=== PATIENT | female | born 1985 | race Hispanic/Latino ===

== ENCOUNTER → 2017-11-25 | Outpatient (CLI) | payer OTHER ==
[~2017-11-25] MED LIST: FERR325C PO; HYDR-926 PO; PNV1TABL34 PO
[2017-11-25 11:12] LABS: BASOPHIL % 0.2 % (0.0-0.2); EOSINOPHIL # 0.2 10^3/uL (0.0-0.2); EOSINOPHIL % 3.2 % (0.0-5.0); HEMOGLOBIN 12.8 g/dL (12.0-15.0); LYMPHOCYTES # 1.8 10^3/uL (1.0-4.8); LYMPHOCYTES % 29.6 % (24.0-44.0); MEAN CELL HGB 28.8 pg (26-34); MEAN CELL HGB CONCENTRATION 33.6 g/dL (33-37); MEAN CORP VOLUME 85.6 fL (78-100); MEAN PLATELET VOLUME 10.8 fL (7.8-11.0); MONOCYTES # 0.4 10^3/uL (0.3-0.8); MONOCYTES % 6.9 % (5.0-12.0); NEUTROPHIL # 3.7 10^3/uL (1.8-7.7); NEUTROPHILS % 60.1 % (41.0-85.0); RED CELL DISTRIBUTION WIDTH 13.3 % (11.5-14.5); WHITE BLOOD CELL 6.2 10^3/uL (4.5-11.0)
[2017-11-25 11:54] LABS: CALCIUM 9.1 mg/dL (8.4-10.5); CARBON DIOXIDE 24.8 mmol/L (20.0-32)
== END | disposition home or self-care (01) ==
LOC: LAB 10:51
PROVIDERS: ATTEND Nurse Practitioner Women's Health
DX: E55.9 Vitamin D deficiency, unspecified (principal); Z68.35 Body mass index [BMI] 35.0-35.9, adult
CPT/HCPCS: 36415; 80053; 80061; 82306; 83036; 84439; 84443; 85025

== ENCOUNTER 2018-02-20 11:38 | Emergency (ER) | payer OTHER ==
[~2018-02-20] VITALS: Ht 157.5 cm; Wt 97.1 kg
[~2018-02-20 11:38] MED LIST changes: +HYDR-3468 PO; -HYDR-926 PO
--- NOTE | 2018-02-20 11:50 | ER.PDOC ---
General Chief Complaint: Requesting Medical Care Stated Complaint: HERNIA Time seen by MD: 11:49 Source: patient Exam Limitations: no limitations History of Present Illness Initial Comments Pt with h/o umbilical hernia, which has been hurting for the last two days Timing/Duration: 24 hours Severity/Quality: severe, sharpness Radiation: no radiation, periumbilical Associated Symptoms: nausea/vomiting Exacerbated by: movements Relieved By: supine Allergies: Coded Allergies: No Known Allergies (Unverified , 10/28/13) Home Meds Active Scripts Hydrocodone Bit/Acetaminophen (NORCO 5-325 TABLET) 5-325 Ta1 Ea Tablet, 1 EACH PO Q4HR PRN for PAIN MODERATE, #30 TABLET 0 Refills Prov:MEL VARGAS MD 03/26/16 Reported Medications Ferrous Sulfate (IRON) 325 Mg Capsule.er, 325 MG PO BID 02/22/16 Pnv With Ca,No.72/Iron/Fa ( PLUS IRON TABLET) 1 Each Tablet, 1 TAB PO DAILY, #30 TAB 11 Refills 02/22/16 Constitutional: no symptoms reported EENTM: no symptoms reported Respiratory: no symptoms reported Cardiovascular: no symptoms reported Gastrointestinal: see HPI Genitourinary: no symptoms reported Musculoskeletal: no symptoms reported Skin: no symptoms reported Psychiatric/Neurological: no symptoms reported Endocrine: no symptoms reported Hematologic/Lymphatic: no symptoms reported Physical Exam General Appearance: No Apparent Distress, WD/WN HEENT: PERRL/EOMI, Normal ENT Inspection, TMs Normal, Pharynx Normal Neck: Non-Tender, Full Range of Motion, Supple, Normal Inspection Respiratory: chest non-tender, lungs clear, normal breath sounds, no respiratory distress, no accessory muscle use Cardiovascular: Normal Peripheral Pulses, Regular Rate, Rhythm, No Edema, No Gallop, No JVD, No Murmur Gastrointestinal: Normal Bowel Sounds, Tenderness (umbilical area with 5 cm sized umbilical hernia which does not look red or warm) Back: Normal Inspection, No CVA Tenderness, No Vertebral Tenderness Extremities: Normal Range of Motion, Non-Tender, Normal Inspection, No Pedal Edema, No Calf Tenderness, Normal Capillary Refill, Pelvis Stable Neurologic/Psychiatric: authors motivational II-XII NML as Tested, No Motor/Sensory Deficits, Alert, Normal Mood/Affect, Oriented x 3 Skin: Normal Color, Warm/Dry Lymphatic: No Adenopathy Departure Time of Disposition: 15:26 Disposition: 01 HOME, SELF-CARE Impression: Primary Impression: Umbilical hernia Additional Impression: UTI (urinary tract infection) Condition: Stable Referrals: NAIMA LIN MD (PCP) PRIMARY CARE PROVIDER Duration or Time Spent with Pa: 15 Problem Qualifiers TAISHA SIDDIQUI MD Feb 20, 2018 11:50
[2018-02-20] MEDS ORDERED: TORADOL IV STA (11:53)
[2018-02-20 11:54] VITALS: BP 123/67
[2018-02-20] MEDS ORDERED: NS 1000ML 1,000 ML IV ONE (12:00)
[2018-02-20] MEDS ORDERED: TORADOL ONE (12:03)
[2018-02-20] MEDS ORDERED: NS 1000ML 1,000 ML ONE (12:03)
[2018-02-20 12:08] LABS: BASOPHIL % 0.1 % (0.0-0.2); EOSINOPHIL # 0.2 10^3/uL (0.0-0.2); EOSINOPHIL % 1.9 % (0.0-5.0); HEMOGLOBIN 13.2 g/dL (12.0-15.0); LYMPHOCYTES # 2.3 10^3/uL (1.0-4.8); LYMPHOCYTES % 25.3 % (24.0-44.0); MEAN CELL HGB 28.1 pg (26-34); MEAN CELL HGB CONCENTRATION 32.5 g/dL (33-37); MEAN CORP VOLUME 86.4 fL (78-100); MEAN PLATELET VOLUME 10.6 fL (7.8-11.0); MONOCYTES # 0.6 10^3/uL (0.3-0.8); MONOCYTES % 6.8 % (5.0-12.0); NEUTROPHIL # 5.8 10^3/uL (1.8-7.7); NEUTROPHILS % 65.6 % (41.0-85.0); RED CELL DISTRIBUTION WIDTH 13.6 % (11.5-14.5); WHITE BLOOD CELL 8.9 10^3/uL (4.5-11.0)
[2018-02-20 12:24] LABS: CALCIUM 9.5 mg/dL (8.4-10.5); CARBON DIOXIDE 27.8 mmol/L (20.0-32)
[2018-02-20 15:00] LABS: BILIRUBIN,URINE NEGATIVE (NEGATIVE)
--- NOTE | 2018-02-20 15:09 | DIREP ---
PROCEDURE:CT ABDOMEN/PELVIS W/ CONTRAST COMPARISON:None. INDICATIONS:UMBILICAL Hernia, abdominal pain TECHNIQUE:Axial images were created through the abdomen and pelvis with non-ionic intravenous contrast material. Oral contrast was administered. Sagittal and coronal reconstructions were performed from source images. FINDINGS: LUNG BASES:No suspicious airspace consolidation or pleural effusion. LIVER:No suspicious focal hepatic lesion. BILIARY:The gallbladder is contracted. There is increased density material within the gallbladder which may reflect hyperdense sludge, tiny calculi or vicarious excretion of intravenous contrast. There are larger low-attenuation filling defects within the gallbladder, most consistent with cholelithiasis. This includes a presumed calculus in the region of the gallbladder neck. No intrahepatic or extrahepatic biliary ductal dilatation. PANCREAS:No suspicious pancreatic abnormality. SPLEEN:The spleen is not significantly enlarged. No focal splenic lesion identified. ADRENALS:The adrenal glands are unremarkable. URINARY TRACT:Tiny left renal cyst. No hydronephrosis or suspicious renal lesion. AORTA/VASCULAR:No aneurysmal dilatation. RETROPERITONEUM:No suspicious retroperitoneal lymphadenopathy. BOWEL/MESENTERY:No evidence for small bowel obstruction. No gross colonic abnormality. Normal appendix. No free air. ABDOMINAL WALL:Sizable fat containing umbilical hernia. The herniated fat measures approximately 6.9 x 6.1 x 6.7 cm (cc, AP, TV). This extends through an approximate 1.8 x 1.6 cm defect within the midline ventral abdominal wall at the level of the umbilicus. There is subtle edema of the herniated fat which may reflect secondary inflammation. PELVIC ORGANS:Urinary bladder is nondistended. Uterus is not enlarged for the patient's age. Adnexal regions appear within normal limits. No significant free fluid within the pelvis. BONES:No acute abnormality. CONCLUSION: 1. Sizable fat containing umbilical hernia as discussed above. There is subtle edema of the herniated fat which may reflect secondary inflammation. 2. Contracted gallbladder with hyperdense contents and apparent cholelithiasis, including a presumed calculus in the region of the gallbladder neck. No overt gallbladder wall thickening or pericholecystic inflammation to suggest acute cholecystitis. No intrahepatic or extrahepatic biliary ductal dilatation. 3. Additional findings as discussed above. Dictated by: Jorge A Pierce M.D. On 02/20/2018 at 02:46 PM
[2018-02-20 15:18] LABS: APPEARANCE,URINE CLOUDY (CLEAR); UA COLOR YELLOW (YELLOW)
[2018-02-20 15:44] VITALS: BP 123/67
== END 2018-02-20 15:45 | disposition home or self-care (01) ==
LOC: ER 11:38
DX: N39.0 Urinary tract infection, site not specified (principal); R79.1 Abnormal coagulation profile; K42.9 Umbilical hernia without obstruction or gangrene; Z79.899 Other long term (current) drug therapy
CPT/HCPCS: 36415; 74177; 80053; 81000; 81025; 85025; 85610; 85730; 87086; 96361; 96374; 99284; J1885; J7030; Q9963; Q9965

== ENCOUNTER → 2019-03-14 | Outpatient (CLI) | payer OTHER ==
[2019-03-14 12:37] LABS: BASOPHIL % 0.4 % (0.0-0.2); EOSINOPHIL # 0.2 10^3/uL (0.0-0.2); EOSINOPHIL % 2.1 % (0.0-5.0); LYMPHOCYTES # 2.5 10^3/uL (1.0-4.8); LYMPHOCYTES % 30.5 % (24.0-44.0); MEAN CORP HGB 29.2 pg (26-34); MONOCYTES # 0.6 10^3/uL (0.3-0.8); MONOCYTES % 6.9 % (5.0-12.0); NEUTROPHIL # 4.9 10^3/uL (1.8-7.7); RED CELL DISTRIBUTION WIDTH 13.7 % (11.5-14.5)
[2019-03-14 13:12] LABS: CALCIUM 8.8 mg/dL (8.4-10.5); CARBON DIOXIDE 25.8 mmol/L (20.0-32)
== END | disposition home or self-care (01) ==
LOC: LAB 12:26
PROVIDERS: ATTEND Nurse Practitioner Women's Health
DX: E55.9 Vitamin D deficiency, unspecified (principal); Z68.33 Body mass index [BMI] 33.0-33.9, adult
CPT/HCPCS: 36415; 80053; 80061; 82306; 83036; 84439; 84443; 85025

== ENCOUNTER 2019-05-12 14:23 | Inpatient (IN) | payer OTHER ==
[~2019-05-12] VITALS: Ht 162.6 cm; Wt 96.0 kg
[2019-05-12] VITALS (14 sets, daily range): BP systolic 86–115; BP diastolic 47–67
--- NOTE | 2019-05-12 15:02 | ER.PDOC ---
General Chief Complaint: Abdomen Pain Stated Complaint: STOMACH HERNIA,VOMITTING Time seen by MD: 15:02 Source: patient Exam Limitations: no limitations History of Present Illness Initial Comments Patient had sudden onset of abdominal pain just above the umbilicus at noon. She has a known hernia here and has had it reduced before, but it always pops back out. Today the pain came on suddenly and she has had n/v. Timing/Duration: 1-3 hours Severity/Quality: severe, sharpness, stabbing Radiation: epigastric, periumbilical Associated Symptoms: nausea/vomiting, swelling/mass in abdomen Exacerbated by: movements Relieved By: remaining still Allergies: Coded Allergies: No Known Allergies (Unverified , 10/28/13) Home Meds Active Scripts Hydrocodone Bit/Acetaminophen (NORCO 5-325 TABLET) 5-325 Ta1 Ea Tablet, 1 EACH PO Q4HR PRN for PAIN MODERATE, #30 TABLET 0 Refills Prov:MEL VARGAS MD 03/26/16 Reported Medications Ferrous Sulfate (IRON) 325 Mg Capsule.er, 325 MG PO BID 02/22/16 Pnv With Ca,No.72/Iron/Fa ( PLUS IRON TABLET) 1 Each Tablet, 1 TAB PO DAILY, #30 TAB 11 Refills 02/22/16 Vital Signs First Vital Signs Date Time Temp Pulse Resp B/P (MAP) Pulse Ox O2 Delivery O2 Flow Rate FiO2 05/12/19 14:37 98.5 62 16 100/63 (75) 100 Last Vital Signs Date Time Temp Pulse Resp B/P (MAP) Pulse Ox O2 Delivery O2 Flow Rate FiO2 05/12/19 16:09 98.5 56 16 86/53 (64) 100 Past Medical History Medical History: other (known abdominal hernia in the region of pain that she states will only pop back out if I put it back in) Surgical History: no surgical history Social History Alcohol Use: none Drug Use: none Constitutional: no symptoms reported EENTM: no symptoms reported Respiratory: no symptoms reported Cardiovascular: no symptoms reported Gastrointestinal: abdominal pain (just above umbilicus in region of known hernia), nausea, vomiting Musculoskeletal: no symptoms reported Skin: no symptoms reported Physical Exam General Appearance: Mild Distress (patient appears acutely uncomfortable) Respiratory: lungs clear, normal breath sounds, no respiratory distress, no accessory muscle use Cardiovascular: Regular Rate, Rhythm Gastrointestinal: Hypoactive bowel sounds, Other (rigid 6 cm mass above umbilicus, very TTP, c/w incarcerated hernia) Extremities: No Pedal Edema, No Calf Tenderness Neurologic/Psychiatric: Alert, Oriented x 3 Skin: Normal Color, Warm/Dry Lymphatic: No Adenopathy Results/Orders Results/Orders Orders - SPARKLE CORTÉS DO Cbc With Auto Diff (05/12/19 15:09) Comprehensive Metabolic Panel (05/12/19 15:09) Amylase (05/12/19 15:09) Lipase (05/12/19 15:09) PT (05/12/19 15:09) Ct Abd/Pel With Iv Contrast (05/12/19 15:09) Partial Thromboplastin Time. (05/12/19 15:09) Hcg Qualitative Serum (05/12/19 15:09) Urinalysis (05/12/19 15:09) Saline Lock (05/12/19 15:09) Ngt To Lis (05/12/19 15:09) 0.9 % Sodium Chloride (Ns 1000ml) (05/12/19 15:30) 0.9 % Sodium Chloride (Ns 1000ml) (05/12/19 15:16) Fentanyl Citrate/Pf (Sublimaze) (05/12/19 15:33) Ondansetron Hcl/Pf (Zofran) (05/12/19 15:33) Xr Chest 1v (05/12/19 15:41) 0.9 % Sodium Chloride (Ns 1000ml) (05/12/19 16:26) 0.9 % Sodium Chloride (Ns 1000ml) (05/12/19 16:30) 0.9 % Sodium Chloride (Ns 1000ml) (05/12/19 16:42) Lactic Acid(Ml) (05/12/19 16:42) Vital Signs Date Time Temp Pulse Resp B/P (MAP) Pulse Ox O2 Delivery O2 Flow Rate FiO2 05/12/19 16:09 98.5 56 16 86/53 (64) 100 05/12/19 14:52 98.5 59 16 05/12/19 14:37 98.5 58 16 100 05/12/19 14:37 98.5 62 16 100/63 (75) 100 Administered Medications Medications (Trade) Dose Ordered Sig/Michael Route PRN Reason Start Time Stop Time Status Last Admin Dose Admin Fentanyl Citrate (Sublimaze) 50 mcg STAT STAT IV 05/12/19 15:33 05/12/19 15:34 UNV 05/12/19 15:47 50 MCG Ondansetron HCl (Zofran) 4 mg STAT STAT IV 05/12/19 15:33 05/12/19 15:34 UNV 05/12/19 15:47 4 MG Sodium Chloride 1,000 ml @ 0 mls/hr Q0M STAT IV 05/12/19 16:30 05/12/19 16:31 UNV 05/12/19 16:32 1,200 MLS/HR Sodium Chloride 1,000 ml @ 1,200 mls/hr Q50M ONCE IV 05/12/19 15:30 05/12/19 16:19 DC 05/12/19 15:17 1,200 MLS/HR Laboratory Tests Test 05/12/19 15:25 White Blood Count 9.1 10^3/uL (4.5-11.0) Red Blood Count 4.29 10^6/uL (4.00-5.20) Hemoglobin 12.5 g/dL (12.0-15.0) Hematocrit 37.4 % (36.0-46.0) Mean Corpuscular Volume 87.2 fL (78-100) Mean Corpuscular Hemoglobin 29.1 pg (26-34) Mean Corpuscular Hemoglobin Concent 33.4 g/dL (33-36.5) Red Cell Distribution Width 12.9 % (11.5-14.5) Platelet Count 278 10^3/uL (150-400) Mean Platelet Volume 10.7 fL (7.8-11.0) Neutrophils (%) (Auto) 87.1 % (41.0-85.0) H Lymphocytes (%) (Auto) 9.4 % (24.0-44.0) L Monocytes (%) (Auto) 2.9 % (5.0-12.0) L Neutrophils # (Auto) 7.9 10^3/uL (1.8-7.7) H Lymphocytes # (Auto) 0.86 10^3/uL1 (1.0-4.8) L Monocytes # (Auto) 0.3 10^3/uL (0.3-0.8) Absolute Immature Granulocyte (auto 0.02 10^3 u/L (0-2) Absolute Eosinophils (auto) 0.0 10^3/uL (0.0-0.2) Immature Granulocytes % 0.20 % (0.00-0.50) Eosinophils % 0.2 % (0.0-5.0) Basophils % 0.2 % (0.0-0.2) Basophils # 0.0 10^3/uL (0.0-0.1) Prothrombin Time 11.4 SEC (9.3-11.3) H Prothrombin Time INR (Non-Therap) 1.1 Activated Partial Thromboplast Time 23.2 SEC (24.67-30.72) Sodium Level 140 mmol/L (132-145) Potassium Level 3.9 mmol/L (3.6-5.2) Chloride Level 105.0 mmol/L (96-109) Carbon Dioxide Level 27.4 mmol/L (20.0-32) Anion Gap 11.5 Blood Urea Nitrogen 10 mg/dL (7-18) Creatinine 0.70 mg/dL (0.59-1.40) Estimated GFR () 118.1 (>/=60) Est GFR (CKD-EPI)(Non-Afr Lebanese) 97.6 (>/=60) BUN/Creatinine Ratio 14.0 Glucose Level 121 mg/dL (70-110) H Calcium Level 8.8 mg/dL (8.4-10.5) Total Bilirubin 0.3 mg/dL (0.2-1.0) Aspartate Amino Transferase (AST) 31 U/L (0-35) Alanine Aminotransferase (ALT) 67 U/L (12-78) Alkaline Phosphatase 75 U/L (50-136) Total Protein 7.7 g/dL (6.4-8.2) Albumin 3.9 g/dL (3.4-5.0) Globulin 3.8 Amylase Level 54 U/L (25-115) Lipase 174 U/L (114-286) Serum HCG, Qualitative NEGATIVE (NEGATIVE) Progress Progress Dr. Conrad suggested NGT to see if it would decompress and potentially relieve incarceration. Patient's blood pressure at onset of visit will not support narcotic administration. We are bolusing NS prior to medication order/administration. @1533 BP 124/65. Fentanyl ordered for pain with zofran to control nausea. We were unable to give more pain medication d/t low blood pressure (86 systolic after fentanyl). A second bolus was ordered. Patient was placed in trendelenberg and pressure applied to hernia. She tolerated this poorly. I was unable to appreciate movement of hernia on exam. BP up to 114 systolic after attempted reduction. @[address] results [address] DR. Conrad. He would like a 3rd liter NS bolused. States he will come up and view CT then evaluate patient. EKG/XRAY/CT/US XRAY: chest (NGT placement is appropriate) Consult/PCP Time Consult/PCP Called: 15:09 Consult/PCP: Dr. Conrad Reason/Comments: discussed studies/therapy #2 Time Consult/PCP Called: 16:44 Consult/PCP: Dr. Conrad Reason/Comments: conveyed CT results #3 Time Consult/PCP Called: 16:57 Consult/PCP: Dr. Kaminski Reason/Comments: 24 hour observation admission Course Duration or Total Time Spent w: 15 Vitals & review Data Vital Sign - Last 24 Hours 05/12/19 05/12/19 05/12/19 05/12/19 14:37 14:37 14:52 16:09 Temp 98.5 98.5 98.5 98.5 Pulse 62 58 59 56 Resp 16 16 16 16 B/P (MAP) 100/63 (75) 86/53 (64) Pulse Ox 100 100 100 Laboratory Tests Test 05/12/19 15:25 White Blood Count 9.1 10^3/uL Red Blood Count 4.29 10^6/uL Hemoglobin 12.5 g/dL Hematocrit 37.4 % Mean Corpuscular Volume 87.2 fL Mean Corpuscular Hemoglobin 29.1 pg Mean Corpuscular Hemoglobin Concent 33.4 g/dL Red Cell Distribution Width 12.9 % Platelet Count 278 10^3/uL Mean Platelet Volume 10.7 fL Neutrophils (%) (Auto) 87.1 % Lymphocytes (%) (Auto) 9.4 % Monocytes (%) (Auto) 2.9 % Neutrophils # (Auto) 7.9 10^3/uL Lymphocytes # (Auto) 0.86 10^3/uL1 Monocytes # (Auto) 0.3 10^3/uL Absolute Immature Granulocyte (auto 0.02 10^3 u/L Absolute Eosinophils (auto) 0.0 10^3/uL Immature Granulocytes % 0.20 % Eosinophils % 0.2 % Basophils % 0.2 % Basophils # 0.0 10^3/uL Prothrombin Time 11.4 SEC Prothrombin Time INR (Non-Therap) 1.1 Activated Partial Thromboplast Time 23.2 SEC Sodium Level 140 mmol/L Potassium Level 3.9 mmol/L Chloride Level 105.0 mmol/L Carbon Dioxide Level 27.4 mmol/L Anion Gap 11.5 Blood Urea Nitrogen 10 mg/dL Creatinine 0.70 mg/dL Estimated GFR () 118.1 Est GFR (CKD-EPI)(Non-Afr Lebanese) 97.6 BUN/Creatinine Ratio 14.0 Glucose Level 121 mg/dL Calcium Level 8.8 mg/dL Total Bilirubin 0.3 mg/dL Aspartate Amino Transf (AST/SGOT) 31 U/L Alanine Aminotransferase (ALT/SGPT) 67 U/L Alkaline Phosphatase 75 U/L Total Protein 7.7 g/dL Albumin 3.9 g/dL Globulin 3.8 Amylase Level 54 U/L Lipase 174 U/L Serum HCG, Qualitative NEGATIVE Current Medications Medications (Trade) Dose Ordered Sig/Michael PRN Reason Start Time Stop Time Status Last Admin Fentanyl Citrate (Sublimaze) 50 mcg STAT STAT 05/12/19 15:33 05/12/19 15:34 UNV 05/12/19 15:47 Ondansetron HCl (Zofran) 4 mg STAT STAT 05/12/19 15:33 05/12/19 15:34 UNV 05/12/19 15:47 Sodium Chloride 1,000 ml @ 0 mls/hr Q0M STAT 05/12/19 16:30 05/12/19 16:31 UNV 05/12/19 16:32 Sepsis Infection Criteria Pres: None O2 Sat by Pulse Oximetry: 100 Departure Time of Disposition: 16:57 Disposition: 09 ADMITTED INPATIENT (23 hour observation admission) Impression: Primary Impression: Incarcerated hernia of abdominal cavity Condition: Stable Referrals: NAIMA LIN MD (PCP) PRIMARY CARE PROVIDER Duration or Time Spent with Pa: 45 min SPARKLE CORTÉS DO May 12, 2019 15:02
--- NOTE | 2019-05-12 15:03 | NUR ---
KEISHA CORTÉS ON THE PHONE WITH DOCTOR VALDES DISCUSSING PATIENT.
[2019-05-12] MEDS ORDERED: NS 1000ML 1,000 ML ONE ×2 (15:16→16:26)
[2019-05-12 15:29] LABS: BASOPHIL % 0.2 % (0.0-0.2); EOSINOPHIL % 0.2 % (0.0-5.0); LYMPHOCYTES # 0.86 10^3/uL1 (1.0-4.8); LYMPHOCYTES % 9.4 % (24.0-44.0); MEAN CORP HGB 29.1 pg (26-34); MONOCYTES # 0.3 10^3/uL (0.3-0.8); MONOCYTES % 2.9 % (5.0-12.0); NEUTROPHIL # 7.9 10^3/uL (1.8-7.7); NEUTROPHILS % 87.1 % (41.0-85.0); RED CELL DISTRIBUTION WIDTH 12.9 % (11.5-14.5)
[2019-05-12] MEDS ORDERED: NS 1000ML 1,000 ML IV ONE (15:30)
[2019-05-12] MEDS ORDERED: SUBLIMAZE IV STA (15:33)
[2019-05-12] MEDS ORDERED: ZOFRAN IV STA (15:33)
--- NOTE | 2019-05-12 15:39 | NUR ---
NG TUBE NG TUBE PLACED TO THE LEFT NARES, PLACEMENT CHECKED BY JOYCE HAWK RN AT BEDSIDE, PATIENT TOLERATED WELL.
[2019-05-12 15:47] LABS: CALCIUM 8.8 mg/dL (8.4-10.5); CARBON DIOXIDE 27.4 mmol/L (20.0-32)
--- NOTE | 2019-05-12 16:07 | DIREP ---
PROCEDURE:CHEST 1 VIEW COMPARISON:None. INDICATIONS:NGT placement FINDINGS: LUNGS/PLEURA:A shallow inspiratory excursion is noted. This results in crowding of the bronchopulmonary vascular structures, notably in the perihilar regions. No definitive evidence of consolidative infiltrate or sizable pleural effusion. VASCULATURE:Normal. Unremarkable pulmonary vasculature. CARDIAC:Normal. No cardiac silhouette abnormality or cardiomegaly. MEDIASTINUM:Normal. No visible mass or adenopathy. BONES:Normal. No fracture or visible bony lesion. OTHER:The distal tip of an enteric tube projects over the fundus of the stomach CONCLUSION: Shallow inspiratory excursion. ET tube as above Dictated by: Dennis Al M.D. on 05/12/2019 at 04:05 PM
--- NOTE | 2019-05-12 16:15 | NUR ---
CAT SCAN PATIENT TO CAT SCAN WITH [facility] FROM RADIOLOGY.
--- NOTE | 2019-05-12 16:22 | NUR ---
CAT SCAN PATIENT BACK FROM CAT SCAN.
[2019-05-12] MEDS ORDERED: NS 1000ML 1,000 ML STA ×2 (16:30→16:42)
[2019-05-12] MEDS ORDERED: NS 1000ML 1,000 ML IV STA (16:30)
--- NOTE | 2019-05-12 16:38 | DIREP ---
PROCEDURE:CT ABDOMEN/PELVIS W/ CONTRAST COMPARISON:[facility], CT, CT ABD/PELVIS W/ CONTRAST, 02/20/2018, 02:33 PM. INDICATIONS:incarcerated hernia TECHNIQUE:Axial images were created through the abdomen and pelvis with non-ionic intravenous contrast material. No oral contrast was administered. Sagittal and coronal reconstructions were performed from source images. FINDINGS: LUNG BASES:Normal. No visible pulmonary or pleural disease. LIVER:Normal. No significant liver lesions are identified. BILIARY:Cholelithiasis. No gallbladder wall thickening or pericholecystic fluid to suggest cholecystitis. PANCREAS:Normal. No lesion, fluid collection, ductal dilatation, or atrophy. SPLEEN:Normal. No enlargement or focal lesion. ADRENALS:Normal. No mass or enlargement. URINARY TRACT:Normal. No focal lesions or hydronephrosis. AORTA/VASCULAR:Normal. No aneurysm. RETROPERITONEUM:Normal. No mass or adenopathy. BOWEL/MESENTERY:A supraumbilical hernia is present, containing a loop of small bowel. The small bowel is mildly dilated within the hernia sac, without evidence for ronen obstruction. No marked wall thickening or edema is seen to suggest ischemia. The hernia neck measures on the order of 1.8 cm craniocaudal by 2.0 cm transverse. An enteric tube is present with tip in the stomach. The gastrointestinal tract is otherwise within normal limits. The appendix is normal. ABDOMINAL WALL:Normal. No mass or hernia. PELVIC ORGANS:Normal. No visible mass. Pelvic organs appropriate for patient age. BONES:Normal for age. No bony lesion or acute fracture. OTHER:Negative. CONCLUSION:1. Supraumbilical hernia containing loop of small bowel. No CT evidence for ronen obstruction or bowel ischemia. 2. Cholelithiasis without CT evidence for cholecystitis. Dictated by: Kinjal Cradoza M.D. on 05/12/2019 at 04:33 PM
--- NOTE | 2019-05-12 16:41 | NUR ---
KEISHA CORTÉS ON THE PHONE WITH DOCTOR VALDES AT THIS TIME DISCUSSING PATIENT AT THIS TIME.
--- NOTE | 2019-05-12 16:55 | NUR ---
KEISHA VALDES TO THE ED TO SEE PATIENT.
--- NOTE | 2019-05-12 16:55 | NUR ---
GEOVANNA CORTÉS ON THE PHONE WITH DOCTOR AUSTIN DISCUSSING ADMISSION.
--- NOTE | 2019-05-12 17:09 | NUR ---
OPERATING CREW OPERATING CREW NOTIFIED OF PATIENT NEED FOR SURGERY
[2019-05-12] MEDS ORDERED: QUELICIN ONE (17:11)
[2019-05-12] MEDS ORDERED: LIDOCAINE 2% VIAL ONE (17:11)
[2019-05-12] MEDS ORDERED: ZEMURON IV ONE (17:11)
[2019-05-12] MEDS ORDERED: DECADRON ONE (17:12)
[2019-05-12] MEDS ORDERED: LACTATED RINGERS 2,000 ML ONE (17:12)
[2019-05-12] MEDS ORDERED: DIPRIVAN IV ONE (17:12)
[2019-05-12] MEDS ORDERED: NEOSTIGMINE ONE (17:13)
[2019-05-12] MEDS ORDERED: DILAUDID ONE (17:13)
[2019-05-12] MEDS ORDERED: VERSED ONE (17:13)
[2019-05-12] MEDS ORDERED: TORADOL ONE (17:13)
[2019-05-12] MEDS ORDERED: SENSORCAINE 0.5% VIAL ONE (17:13)
[2019-05-12] MEDS ORDERED: LOVENOX SQ ONE (17:14)
[2019-05-12] MEDS ORDERED: NS 100ML 100 ML IV ONE (17:14)
[2019-05-12] MEDS ORDERED: MEFOXIN ONE (17:14)
[2019-05-12] MEDS ORDERED: PEPCID IV STA (17:19)
[2019-05-12] MEDS: LOVENOX SQ SCH (17:20)
--- NOTE | 2019-05-12 17:21 | NUR ---
SURGICAL PREPERATION BILATERAL CALF SCD'S APPLIED TO PT. NONSLIP YELLOW SOCKS APPLIED TO PT. ABDOMEN CLIPPED AND CLEANSED WITH KRISH WIPES X. ALL UNDERWEAR REMOVED. PT PLACED IN OR GOWN. PT ATTEMPTED TO VOID ON BEDPAIN WITHOUT SUCCESS.
--- NOTE | 2019-05-12 17:22 | NUR ---
LOVENOX LOVENOX 40UNITS GIVEN SUBQ TO RIGHT SIDE PER DR VALDES.
--- NOTE | 2019-05-12 17:23 | NUR ---
SURGERY TEAM Mellisa BARRETT RN TRANSFERED PT TO OR FOR OPERATION. SPOUSE INSTRUCTED WHERE TO WAIT. REPORT CALLED TO Hoa DENT RN ON PT.
[2019-05-12] MEDS: MEFOXIN IV SCH ×2 (17:30→22:11)
[2019-05-12] MEDS: PIGGYBACK IV SCH ×2 (17:30→22:11)
[2019-05-12] MEDS ORDERED: WATER ONE (18:39)
--- NOTE | 2019-05-12 19:49 | PRM.OPH ---
OPERATIVE REPORT OPERATIVE REPORT DATE OF SURGERY: May 12, 2019 PREOPERATIVE DIAGNOSIS: Incarcerated ventral hernia POSTOPERATIVE DIAGNOSES: 1) incarcerated ventral hernia 2) compromised segment small bowel, hemorrhagic ischemia SURGEON: Lamonte Conrad DO DATABASE SUPPORT: OR staff ANESTHESIA: General by Callum Stevenson CRNA plus bilateral Q. L. Block PROCEDURES PERFORMED: 1) Open hernia repair. 2) small bowel resection with primary anastomosis SPECIMENS: 1) hernia sac 2) segment small bowel ESTIMATED BLOOD LOSS: 37 mL. COUNTS: At the completion of the case, the counts were correct per OR staff. DESCRIPTION OF PROCEDURE: Mrs. Mckeon, is a 33-year-old female known from previous evaluation. Prior to procedure informed consent was obtained. At the time procedure she is taken the operative suite placed spine position. After timeout is completed general anesthesia is obtained. A bilateral QL block is provided by the department of anesthesia a Clemons catheter is inserted by the nursing service and her abdomen is prepped and draped in a normal fashion. A small supraumbilical midline incision is created and electrocautery is used to control bleeding with dissection down to what proves to be the hernia sac. The hernia sac is dissected from the surrounding tissue superiorly laterally on both sides and partially inferiorly. The sac is then opened inferiorly and laterally. Initially bloody fluid is identified. The opening to the sac is extended superiorly. There is noted to be some compromised omentum and also small bowel that has hemorrhagic changes. Due to the narrow opening of the hernia sac at the neck the fascia was extended inferiorly and superior to allow exposure. Once this is completed more small bowel was brought in the operative field and it is determined after a brief period of inspection that the involved segment of small bowel is compromised. Subsequently it is removed. The 2 ends are loose the 2 portions were loosely approximated with 3-0 GI silk and enterotomies created in each limb and a [id number] functional end-to-end anastomosis is created. The ensuing enterotomy defect is sick is closed as well as room the vision of the portion to be removed with a transverse 75 mm staple load. The mesentery was then divided using the LigaSure device. Some bleeding is encountered it is controlled with electrocautery and sutures. The staple lines were reinforced using 3-0 GI silks. The anastomosis it is tested, it is noted to be widely patent with no signs of leak. The mesenteric defect is repaired on the outside of the loop with a running 2-0 Vicryl and internally with interrupted Vicryl sutures. There is some bleeding identified in the mesentery on the internal aspect of the loop and this is close this is controlled with direct pressure. After the small bowel is been adequately repaired and tested it is irrigated and reduced through the defect. The involved omentum is inspected and noted that it appears to be improved in its appearance and it is reduced as well. The hernia sac that remains is removed using electrocautery on both sides. The fascia is cleared to allow exposure. It appears there is no tension and attempt to bring the 2 lateral aspect to the midline. The abdomen is minimally irrigated using sterile water and suctioned. After final inspection is made and irrigation has been suctioned closure is pursued. The fascia was repaired with interrupted PDS sutures in a [id number] fashion. As it appears to be no tension on the wound no mesh was utilized. The subcu space is copiously irrigated prior to closure. Next the subcu was closed with interrupted 2-0 Vicryl and the skin is closed interrupted 4-0 Monocryl , in a sub Q fashion. Sterile dressings were applied drapes removed. Patient appears tolerated the procedure well there are no acute complications noted. She has been awakened by the department of anesthesia and delivered to the recovery room. LAMONTE CONRAD DO May 12, 2019 19:49
[2019-05-12] MEDS ORDERED: DILAUDID IV PRN (20:00)
[2019-05-12] MEDS ORDERED: APRESOLINE IV PRN (20:00)
[2019-05-12] MEDS ORDERED: PHENERGAN IV PRN ×2 (20:00)
[2019-05-12] MEDS ORDERED: MORPHINE SULFATE IV PRN ×2 (20:00)
[2019-05-12] MEDS ORDERED: ZOFRAN IV PRN ×2 (20:00)
[2019-05-12] MEDS ORDERED: TRANDATE IV PRN (20:00)
[2019-05-12] MEDS ORDERED: SUBLIMAZE IV PRN (20:00)
--- NOTE | 2019-05-12 20:10 | CNH ---
DATE OF CONSULTATION: CHIEF COMPLAINT: Incarcerated ventral hernia. HISTORY OF PRESENT ILLNESS: This is a 33-year-old female who reports to me she has had a ventral hernia for several years, she believes more than 2. She reports prior to this, she has had some intermittent pain, but nothing as severe as today. At home, she had nausea and vomiting and some chills, which led her evaluation in the Emergency Department. In the ER, she was noted to have further vomiting and she has since been decompressed with NG tube, had a CT scan which shows incarcerated hernia. Attempts were made by the ER doctor to reduce it; however, the patient was hypotensive, which limited the success for this. At the time of my assessment, she is alert and pleasant and cooperative, but she does report significant pain in spite of treatment by the Emergency Department. PAST MEDICAL HISTORY: She denies. PAST SURGICAL HISTORY: She denies. ALLERGIES: No known drug allergies. HOME MEDICATIONS: She denies. SOCIAL HISTORY: She denies alcohol, tobacco or illicit drug use. 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 IMMUNIZATION STATUS: She reports she had a flu shot on last year. FAMILY HISTORY: Of limited value. She reports she is adopted. REVIEW OF SYSTEMS: SEASONAL ALLERGIES: She denies runny nose or cough. ENDOCRINE: She denies thyroid disease or diabetes or previous adrenal disease. CARDIOVASCULAR: No chest pain or trouble breathing. PULMONARY: No dyspnea or cough. ABDOMEN: Essentially as per HPI. NEUROLOGIC: She denies any seizure or blackouts. GENITOURINARY: She denies dysuria, frequency or urgency. PHYSICAL EXAMINATION: GENERAL: This is an alert, oriented and appropriate 33-year-old female who is in some distress associated with her pain. Per the electronic medical record number, her BMI is 34.3. VITAL SIGNS: Last vital signs with temperature of 98.5, pulse 70, respiratory rate 16, blood pressure 105/67 with an O2 sat of 100 on room air. HEENT: Normocephalic, atraumatic with pink mucous membranes that are dry. NECK: Supple and soft. She has no JVD. HEART: Has regular rate and rhythm. LUNGS: Clear bilaterally. ABDOMEN: Bowel sounds are decreased and soft. She has a very firm area in the supraumbilical midline. She is extremely tender to exam, which is consistent with a hernia identified on CT. EXTREMITIES: Show positive radial pulses bilaterally, positive dorsal pedal pulses bilaterally. NEUROLOGIC: She has no focal findings. Cranial nerves 2-12 grossly intact. SKIN AND INTEGUMENT: Warm and dry. LABORATORY STUDIES: Show white count 9.1, hemoglobin 12.5, platelet count 278,000. Chemistry shows BUN of 10, creatinine 0.70, glucose of 121. Her hCG is negative. Coagulation studies show PT is slightly elevated at 11.4, PTT is 23.2. IMAGING STUDIES: CT scan shows incarcerated supraumbilical ventral hernia with small bowel involved. SURGICAL ASSESSMENT: 1. Incarcerated ventral hernia involving the small bowel. 2. Clinical dehydration. PLAN: 1. The patient is seen and examined. Chart is reviewed. 2. The patient has second liter of IV fluid and has not required urination. 3. Agree with NG tube is in place for decompression. 4. I have informed the patient's so that informed consent can be obtained as there is a somewhat urgent situation and likely cannot be delayed. We will plan for emergency operation this evening. Homer Conrad DO DR: ISRAEL/anat JOB# [id number] CC: ALISTAIR Torres MD
[2019-05-12] MEDS: LACTATED RINGERS 1,000 ML IV SCH (20:30)
--- NOTE | 2019-05-12 21:32 | HPH ---
ADMIT DATE: 05/12/2019 HISTORY OF PRESENT ILLNESS: The patient is a 33-year-old female who presented to the Emergency Department with abdominal pain. The patient underwent on 05/12/2019 small bowel resection with primary anastomosis for incarcerated supraumbilical ventral hernia with small bowel involvement with herniorrhaphy. At the present time, the patient denies fevers, chills, nausea, vomiting, cough, wheeze, diarrhea or dyspnea. She denies abdominal pain at the present time. She presents for further evaluation. PAST SURGICAL HISTORY: Prior to the surgery performed during this hospitalization, which was ventral herniorrhaphy with small bowel resection with primary anastomosis, denies any other surgeries previously. FAMILY HISTORY: The patient is adopted, unknown. SOCIAL HISTORY: Tobacco denies. Alcohol denies. Caffeine, cola, drugs denies. ALLERGIES: No known drug allergies. CODE STATUS: Full. PERTINENT LABS AND VITAL SIGNS: Blood pressure 102/57, pulse 74, respirations 18, temperature 97.5 degrees, 96% on 1 liter. PHYSICAL EXAMINATION: GENERAL: The patient is an obese female who is somnolent, but arousable. She is in no acute distress. She is neither dyspneic nor tachypneic. HEAD: Atraumatic, normocephalic. EYES: Pupils equally round, reactive to light and accommodation. Extraocular motor intact. Cranial nerves 2-12 are intact. NECK: Shows no JVD, thyromegaly or cervical lymphadenopathy. HEART: Regular rate and rhythm without murmurs, gallops or rubs. LUNGS: Clear to auscultation bilaterally without wheezes, rhonchi or rales. ABDOMEN: Hypoactive bowel sounds in all 4 quadrants without rebound or guarding. There is minimal supraumbilical tenderness present. EXTREMITIES: The patient has 2/4 plus in all 4 extremities without clubbing, cyanosis or edema. She has 5/5 bilateral upper and lower extremity strength. There is no calf tenderness present bilaterally. Homans sign negative bilaterally as well. ASSESSMENT AND PLAN: 1. The patient is status post 05/12/2019: Ventral herniorrhaphy with small bowel resection with primary anastomosis for diagnosis of incarcerated supraumbilical ventral hernia with small bowel involvement. Continue cefoxitin unspecified dosage 1 gram IV q. 8 hours plus IV lactated Ringer's 125 mL per hour. Nasogastric tube has been placed and will be managed by the surgical service. We will provide p.r.n. analgesia. 2. Cholelithiasis, asymptomatic. 3. Obesity. The patient will be counseled regarding lifestyle modification. 4. GI prophylaxis, Protonix 40 mg IV daily. 5. Deep venous thrombosis prophylaxis, Lovenox 40 mg subcutaneously daily. DISPOSITION: Anticipate discharge within 48 hours. ALISTAIR AUSTIN DO DR: Venus JOB# [id number]
[2019-05-13] VITALS (7 sets, daily range): BP systolic 95–116; BP diastolic 56–74
[2019-05-13] MEDS: LACTATED RINGERS 1,000 ML IV SCH ×3 (02:35→18:01)
[2019-05-13] MEDS: DILAUDID IV PRN ×3 (05:43→22:14)
[2019-05-13 05:45] LABS: BASOPHIL % 0.1 % (0.0-0.2); LYMPHOCYTES # 1.12 10^3/uL1 (1.0-4.8); LYMPHOCYTES % 10.8 % (24.0-44.0); MEAN CORP HGB 29.3 pg (26-34); MONOCYTES # 0.7 10^3/uL (0.3-0.8); NEUTROPHIL # 8.5 10^3/uL (1.8-7.7); PLATELET COUNT 253 10^3/uL (150-400); RED CELL DISTRIBUTION WIDTH 13.1 % (11.5-14.5)
[2019-05-13 05:59] LABS: CALCIUM 8.1 mg/dL (8.4-10.5)
[2019-05-13] MEDS: MEFOXIN IV SCH ×3 (06:00→21:33)
[2019-05-13] MEDS: PIGGYBACK IV SCH ×3 (06:00→21:33)
--- NOTE | 2019-05-13 07:31 | NUR ---
AMBULATION PT AMBULATING IN HALLWAY WITH FOR 10 MINUTES, NO S/S OF DISTRESS NOTED. WILL CONT TO MONITOR.
--- NOTE | 2019-05-13 09:06 | PNH ---
DATE: 05/13/2019 TIME: 8:00 a.m. SUBJECTIVE: The patient offers no complaints at this time. She denies abdominal pain. She states that she last received p.r.n. analgesia approximately 6:00 a.m., which was 2 hours prior to my encounter with her. Overnight, she denies fevers, chills, nausea, vomiting, cough, wheeze, dyspnea or any other constitutional complaints. She states that postoperatively, she has not yet had a bowel movement and has not yet had flatus. I have explained to her and her family member her current medical condition and plan of care and I have answered all of her questions. OBJECTIVE: GENERAL: The patient is alert. She is in no acute distress. She is neither dyspneic nor tachypneic. CARDIOVASCULAR: Regular rate and rhythm without murmurs, gallops or rubs. LUNGS: Clear to auscultation bilaterally without wheezes, rhonchi or rales. ABDOMEN: Hypoactive bowel sounds in all 4 quadrants without rebound or guarding. There is minimal supraumbilical tenderness present. EXTREMITIES: The patient has 2/4 pulses in all 4 extremities without clubbing, cyanosis or edema. PERTINENT LABORATORIES AND VITALS: Blood pressure 102/62. Hemoglobin is 11.6. ASSESSMENT: 1. The patient is status post 05/12/2019 with General Surgery: Ventral herniorrhaphy with small bowel resection with primary anastomosis for diagnosis of incarcerated supraumbilical ventral hernia with small bowel involvement. Continue cefoxitin unspecified dosage IV q.8 hours, post IV lactated Ringer's at 125 mL per hour. Nasogastric tube has been placed and will be managed by the surgical service. Continue p.r.n. analgesia. 2. Anemia. This may be dilutional versus secondary to Lovenox 40 mg subcutaneously daily. We will monitor her hemoglobin levels intermittently. 3. Cholelithiasis, asymptomatic. 4. Obesity. 5. Gastrointestinal prophylaxis, Protonix 40 mg IV daily plus Colace 100 mg p.o. b.i.d. 6. For DVT prophylaxis, Lovenox 40 mg subcutaneously daily. DISPOSITION: I anticipate discharge within 24 hours. If we are able to advance her diet, remove her NG tube. I will discuss the patient's case with surgery. ALISTAIR AUSTIN DO DR: Venus JOB# [id number]
[2019-05-13] MEDS: COLACE PO SCH ×2 (09:48→21:33)
[2019-05-13] MEDS: GENASYME PO PRN ×2 (09:48→18:51)
[2019-05-13] MEDS: PROTONIX IV IV SCH (09:48)
--- NOTE | 2019-05-13 10:45 | NUR ---
DISCHARGE PLAN CM SPOKE WITH PATIENT CONCERNING DISCHARGE PLAN AND NEEDS. LIVES AT HOME WITH SPOUSE AND FOUR CHILDREN. INDEPENDENT OF ADLS. CM EDUCATED PATIENT ON OUTPATIENT SERVICES. VERBALLY DENIES NEEDS FOR DME OR SERVICES. HAS FINANCIAL ABILITY TO PAY FOR MEDICATIONS UPON DISCHARGE. PCP IS DR. SHEEHAN IN [place]. DISCHARGE PLAN IS TO DISCHARGE HOME WITH FAMILY AND CONTINUE SELF CARE. CM WILL CONTINUE TO FOLLOW FOR DISCHARGE NEEDS.
--- NOTE | 2019-05-13 12:39 | NUR ---
AMBULATION PT AMBULATING IN HALLWAY WITH ASSISTANCE. NO S/S OF DISTRESS NOTED, WILL CONT TO MONITOR.
[2019-05-13] MEDS ORDERED: EXPAREL 266 MG/20 ML VIAL IJ ONE (13:02)
--- NOTE | 2019-05-13 14:26 | NUR ---
AMBULATION PT AMBULATING IN HALLWAY AT THIS TIME, NO S/S OF DISTRESS NOTED. WILL CONT TO MONITOR.
[2019-05-13] MEDS: NORCO 5MG PO PRN ×2 (14:43→18:52)
--- NOTE | 2019-05-13 16:47 | NUR ---
AMBULATION PT AMBULATING IN HALLWAY WITH ASSIST, NO S/S OF DISTRESS NOTED. WILL CONT TO MONITOR.
--- NOTE | 2019-05-13 17:00 | PRM.PN ---
PROGRESS NOTE S/O/A/P DATE: May 13, 2019 SUBJECTIVE: 33-year-old female no acute distress, seen in her room on multiple occasions. OBJECTIVE: VITAL SIGNS: T-current equals 99.1 pulse equal 76 respiratory rate of 17, blood pressure 116/74 ABDOMEN: Bowel sounds decreased, soft minimal tenderness around incision LABORATORY DATA: White blood count 10.4 hemoglobin 11.6 platelet count 253 BUN 8 creatinine 0.53 ASSESSMENT: Status post open hernia repair with small bowel resection and associated anastomosis, clinical dehydration PLAN: 1) patient seen and examined chart is reviewed 2) continue NG tube as needed until return of normal gut activity, increased activity as tolerated. 3) we will consider x-ray with p.o. contrast tomorrow for get simulation if needed. LAMONTE VALDES DO May 13, 2019 17:00
[2019-05-13] MEDS: LOVENOX SQ SCH (18:00)
[2019-05-13] MEDS ORDERED: DILAUDID ONE (22:12)
[2019-05-14] VITALS (7 sets, daily range): BP systolic 101–115; BP diastolic 61–76
[2019-05-14] MEDS: LACTATED RINGERS 1,000 ML IV SCH ×2 (03:35→11:41)
[2019-05-14 04:49] LABS: CALCIUM 7.9 mg/dL (8.4-10.5); CARBON DIOXIDE 25.9 mmol/L (20.0-32)
--- NOTE | 2019-05-14 05:00 | NUR ---
GASTROGRAFIN FLUSHED INTO NG TUBE . NG TUBE CLAMPED.
[2019-05-14] MEDS: PIGGYBACK IV SCH ×3 (05:40→21:16)
[2019-05-14] MEDS: MEFOXIN IV SCH ×3 (05:40→21:16)
[2019-05-14] MEDS: COLACE PO SCH ×2 (07:53→21:16)
[2019-05-14] MEDS: PROTONIX IV IV SCH (07:53)
[2019-05-14 08:10] LABS: BILIRUBIN,URINE NEGATIVE (NEGATIVE); UROBILINOGEN,URINE NORMAL (NEGATIVE)
[2019-05-14 08:12] LABS: UA COLOR YELLOW (YELLOW)
[2019-05-14 08:18] LABS: APPEARANCE,URINE SLIGHTLY HAZY (CLEAR)
[2019-05-14] MEDS ORDERED: KLOR-CON 10 PO ONE (08:30)
[2019-05-14] MEDS ORDERED: REGLAN IV STA (08:53)
[2019-05-14] MEDS: SENOKOT PO SCH ×2 (09:01→21:16)
--- NOTE | 2019-05-14 09:19 | PNH ---
DATE: 05/14/2019 SUBJECTIVE: The patient currently offers no complaints of abdominal pain; however, she states that approximately an hour prior to my encounter with her, she was having 7/10 abdominal pain for which she received p.r.n. analgesics. Overnight, she has fevers, chills, nausea, vomiting, cough, wheeze, dyspnea or any other constitutional complaints. Postoperatively, she indicates that she has not yet had a bowel movement and has not yet had any flatus, but has been having eructation. I have explained to the patient, her current medical condition and plan of care and I have answered all her questions. PHYSICAL EXAMINATION GENERAL: The patient is alert. She is in no acute distress. She is not dyspneic or tachypneic. She is obese. CARDIOVASCULAR: Regular rate and rhythm without murmurs, gallops or rubs. LUNGS: Clear to auscultation bilaterally without wheezes, rhonchi or rales. ABDOMEN: Hypoactive bowel sounds in all 4 quadrants without rebound, guarding, or tenderness. EXTREMITIES: The patient has 2/4 plus in all 4 extremities without clubbing, cyanosis or edema. VITAL SIGNS: Temperature 100.0 degrees. Otherwise, vital signs stable. LABORATORY DATA: Hemoglobin 10.5, potassium is 3.54. ASSESSMENT AND PLAN: 1. The patient is status postop 05/07/2019 with General Surgery: Ventral herniorrhaphy with small bowel resection with primary anastomosis for diagnosis of incarcerated supraumbilical open ventral hernia with small bowel involvement. Continue cefoxitin unspecified dosage IV q. 8 hours plus IV lactated Ringer's as well as 125 mL per hour. Nasogastric tube has been placed and will be managed by the surgical service. Continue p.r.n. analgesia. 2. Anemia. This may be dilutional versus secondary to Lovenox 40 mg subcutaneously daily. We will monitor hemoglobin levels intermittently. 3. Cholelithiasis, asymptomatic. 4. Obesity. 5. GI prophylaxis, Protonix 40 mg IV daily plus Colace 100 mg p.o. b.i.d. plus senna 8.6 mg p.o. b.i.d. 6. Hypokalemia. We will monitor potassium levels intermittently and supplement as necessary. 7. DVT prophylaxis with Lovenox 40 mg subcutaneously daily. DISPOSITION: The patient may be a candidate for discharge once she commences having bowel movements/flatus and when we are able to advance her diet. ALISTAIR AUSTIN DO DR: RODNEY/anat JOB# [id number]
--- NOTE | 2019-05-14 10:13 | DIREP ---
PROCEDURE:XR ABDOMEN 2 VIEWS COMPARISON:[facility], CT, CT ABD/PELVIS W/ CONTRAST, 05/12/2019, 03:22 PM. INDICATIONS:Ileus TECHNIQUE:Flat and upright views of the abdomen are provided. FINDINGS: BOWEL GAS PATTERN:Diffuse, mild small bowel dilatation measuring up to 3.2 cm. Oral contrast seen within the proximal small bowel. Mild gaseous distention of the distal small bowel. Extensive fecal residue seen throughout the colon. Nasogastric terminates overlying the left upper quadrant, presumably within the stomach. CALCIFICATIONS:None significant. LUNG BASES:Clear. BONES:Degenerative change without evidence of acute osseus abnormality. OTHER:No additional findings. CONCLUSION: 1. Findings concerning for small bowel obstruction. 2. Colonic fecal stasis. 3. Nasogastric catheter terminates overlying the left upper quadrant, presumably within the stomach. Dictated by: Michael Villalobos MD on 05/14/2019 at 10:07 AM
[2019-05-14] MEDS: NORCO 5MG PO PRN ×2 (11:41→19:02)
--- NOTE | 2019-05-14 13:58 | NUR ---
Ng tube removed pt tolerated well, up to bathroom at this time denies n/v or pain at this time
--- NOTE | 2019-05-14 14:52 | DIREP ---
PROCEDURE:XR ABDOMEN 2 VIEWS COMPARISON:[facility], CR, XRAY ABDOMEN 2VW, 05/14/2019, 08:25 AM. INDICATIONS:Ileus TECHNIQUE:Flat and upright views of the abdomen are provided. FINDINGS: BOWEL GAS PATTERN:Diffuse gaseous small bowel dilatation, measuring up to 3.2 cm. Progression of administered oral contrast, now predominantly within the distal small bowel and colon. Extensive fecal residue seen within the proximal colon. Ascending colonic distention, measuring up to 8.7 cm. Fecal residue overlies the rectum. CALCIFICATIONS:None significant. LUNG BASES:Clear. BONES:Degenerative change without evidence of acute osseus abnormality. OTHER:Nasogastric catheter again seen terminating overlying the left upper quadrant CONCLUSION: 1. Diffuse small bowel dilatation with progression of oral contrast to the distal small bowel and proximal colon. Ileus versus partial small bowel obstruction could be considered. 2. Extensive fecal residue within the proximal colon. 3. Grossly stable position nasogastric catheter. Dictated by: Michael Villalobos MD on 05/14/2019 at 02:48 PM
[2019-05-14] MEDS ORDERED: MAGNESIUM SULFATE 50 ML IV ONE (15:00)
[2019-05-14] MEDS: LOVENOX SQ SCH (18:15)
[2019-05-14] MEDS ORDERED: KLOR-CON 10 PO SCH (19:00)
[2019-05-14] MEDS: MAG-OX PO SCH (21:16)
--- NOTE | 2019-05-14 21:21 | PNH ---
DATE: 05/14/2019 BRIEF FOLLOWUP VISIT SUBJECTIVE: A 33-year-old female, in no acute distress. She is tolerating clear liquids and contrast via the NG tube today. She has some pain associated with her incision. OBJECTIVE: VITAL SIGNS: Last temperature is 99.3. Her T-max appears to be 100.1. Most recent heart rate is 92, respiratory rate 18, and blood pressure 115/70. ABDOMEN: The bowel sounds are positive. She has minimal tenderness. Her abdomen is soft on exam. LABORATORY DATA: Today show hemoglobin 10.5. Chemistry shows BUN of 9, creatinine 0.59, magnesium is 1.8. SURGICAL ASSESSMENT: 1. Postoperative day #2, exploratory laparotomy for small bowel resection, hernia repair. 2. Dehydration, improved. PLAN: 1. The patient is seen and examined. The chart is reviewed. 2. NG tube has been removed and she is on clear liquids. Homer Conrad DO DR: ISRAEL/anat JOB# [id number] CC: ALISTAIR Torres MD
[2019-05-15] MEDS: NORCO 5MG PO PRN ×2 (04:35→11:41)
[2019-05-15 04:40] VITALS: BP 113/67
[2019-05-15] MEDS: PIGGYBACK IV SCH (05:54)
[2019-05-15] MEDS: MEFOXIN IV SCH (05:54)
--- NOTE | 2019-05-15 07:19 | NUR ---
REPORT REPORT RECEIVED FROM MITER GRINDER OPERATOR AT THIS TIME.
[2019-05-15 07:44] VITALS: BP 104/64
[2019-05-15] MEDS ORDERED: SENOKOT ONE (09:49)
[2019-05-15] MEDS: PROTONIX IV IV SCH (09:50)
[2019-05-15] MEDS: MAG-OX PO SCH (09:50)
[2019-05-15] MEDS ORDERED: COLACE PO ONE (09:50)
--- NOTE | 2019-05-15 10:59 | NUR ---
STATUS PT HAS WALKED 800FT AT THIS TIME. PT HAS HAD 1 BM. PAIN IS RATED AT 0/10.
[2019-05-15 11:28] VITALS: BP 103/66
[2019-05-15] MEDS ORDERED: SENN8.6T98 PO (12:32)
[2019-05-15] MEDS ORDERED: DOCU-167 PO (12:32)
--- NOTE | 2019-05-15 12:33 | PRM.DC ---
DC Summary Final Dx: Problems Medical Problems: (1) 40 weeks gestation of Status: Acute ICD Codes: Z3A.40 - 40 weeks gestation of SNOMED: 43671574 Responsible Provider: CALLUM DORAN MD Problem Recorded: Mar 25, 2016 14:35 Last Edited By: Callmu Doran MD - Ob on Mar 25, 2016 14:35 (2) Active labor at term Status: Acute ICD Codes: [id number] - Reserved for [id number] codable problem concepts SNOMED: [id number] Responsible Provider: CALLUM DORAN MD Problem Recorded: Mar 25, 2016 14:35 Last Edited By: Callum Doran MD - Ob on Mar 25, 2016 14:35 (3) H/O macrosomia in in prior , currently Status: Acute ICD Codes: O09.299 - Supervision of with other poor reproductive or obstetric history, unspecified trimester SNOMED: [id number] Responsible Provider: CALLUM DORAN MD Problem Recorded: Mar 25, 2016 14:35 Last Edited By: Callum Doran MD - Ob on Mar 25, 2016 14:35 (4) Incarcerated hernia of abdominal cavity Status: Acute ICD Codes: K45.0 - Other specified abdominal hernia with obstruction, without gangrene SNOMED: [id number] Responsible Provider: Monik Denney D.O., ER Problem Recorded: May 12, 2019 16:58 Last Edited By: Homer Conrad D.O. - Surgeon on May 12, 2019 19:46 HPI/Course Problems Acute/Active Problems: (1) Incarcerated hernia of abdominal cavity Lab/Eliseo/BBK/Rad Laboratory Tests Test 05/12/19 15:25 05/12/19 17:10 05/13/19 04:58 05/14/19 04:00 White Blood Count 9.1 10^3/uL 10.4 10^3/uL Red Blood Count 4.29 10^6/uL 3.96 10^6/uL Hemoglobin 12.5 g/dL 11.6 g/dL 10.5 g/dL Hematocrit 37.4 % 34.7 % 31.2 % Mean Corpuscular Volume 87.2 fL 87.6 fL Mean Corpuscular Hemoglobin 29.1 pg 29.3 pg Mean Corpuscular Hemoglobin Concent 33.4 g/dL 33.4 g/dL Red Cell Distribution Width 12.9 % 13.1 % Platelet Count 278 10^3/uL 253 10^3/uL Mean Platelet Volume 10.7 fL 11.2 fL Neutrophils (%) (Auto) 87.1 % 82.0 % Lymphocytes (%) (Auto) 9.4 % 10.8 % Monocytes (%) (Auto) 2.9 % 7.0 % Neutrophils # (Auto) 7.9 10^3/uL 8.5 10^3/uL Lymphocytes # (Auto) 0.86 10^3/uL1 1.12 10^3/uL1 Monocytes # (Auto) 0.3 10^3/uL 0.7 10^3/uL Absolute Immature Granulocyte (auto 0.02 10^3 u/L 0.01 10^3 u/L Absolute Eosinophils (auto) 0.0 10^3/uL 0.0 10^3/uL Immature Granulocytes % 0.20 % 0.10 % Eosinophils % 0.2 % 0.0 % Basophils % 0.2 % 0.1 % Basophils # 0.0 10^3/uL 0.0 10^3/uL Prothrombin Time 11.4 SEC Prothrombin Time INR (Non-Therap) 1.1 Activated Partial Thromboplast Time 23.2 SEC Sodium Level 140 mmol/L 141 mmol/L 142 mmol/L Potassium Level 3.9 mmol/L 3.8 mmol/L 3.5 mmol/L Chloride Level 105.0 mmol/L 108.0 mmol/L 107.0 mmol/L Carbon Dioxide Level 27.4 mmol/L 24.0 mmol/L 25.9 mmol/L Anion Gap 11.5 12.8 12.6 Blood Urea Nitrogen 10 mg/dL 8 mg/dL 9 mg/dL Creatinine 0.70 mg/dL 0.53 mg/dL 0.59 mg/dL Estimated GFR () 118.1 162.8 143.9 Est GFR (CKD-EPI)(Non-Afr Jordanian) 97.6 134.6 118.9 BUN/Creatinine Ratio 14.0 15.0 15.0 Glucose Level 121 mg/dL 131 mg/dL 113 mg/dL Calcium Level 8.8 mg/dL 8.1 mg/dL 7.9 mg/dL Total Bilirubin 0.3 mg/dL 0.6 mg/dL Aspartate Amino Transf (AST/SGOT) 31 U/L 23 U/L Alanine Aminotransferase (ALT/SGPT) 67 U/L 53 U/L Alkaline Phosphatase 75 U/L 56 U/L Total Protein 7.7 g/dL 6.3 g/dL Albumin 3.9 g/dL 3.1 g/dL Globulin 3.8 3.2 Amylase Level 54 U/L Lipase 174 U/L Serum HCG, Qualitative NEGATIVE Lactic Acid Level 1.2 mmol/L Magnesium Level 1.8 mg/dL Test 05/14/19 07:15 Urine Collection Type UNKNOWN Urine Color YELLOW Urine Appearance SLIGHTLY HAZY Urine Bilirubin NEGATIVE MG/DL Urine Ketones 15 mg/dL Urine Specific [place] 1.015 Urine pH 8 Urine Protein NEGATIVE Urine Urobilinogen NORMAL Urine Nitrate NEGATIVE Urine Leukocyte Esterase NEGATIVE Urine Blood 50 2+ Urine RBC 0-2 RBC/HPF Urine WBC 2-5 WBC/HPF Urine Squamous Epithelial Cells FEW #/HPF Urine Bacteria FEW Urine Glucose NORMAL Vitals/I&O VS - Last 72 Hours, by Label Date Time Temp Pulse Resp B/P (MAP) Pulse Ox O2 Delivery O2 Flow Rate FiO2 05/15/19 11:28 98.2 71 19 103/66 (78) 96 Room Air 05/15/19 10:45 Room Air 05/15/19 09:33 16 92 05/15/19 09:33 76 18 92 Room Air 05/15/19 07:44 98.5 77 19 104/64 (77) 97 Room Air 05/15/19 04:49 Room Air 05/15/19 04:40 98.8 78 16 113/67 (82) 95 Room Air 05/14/19 23:34 99.0 66 16 114/76 (89) 95 Room Air 05/14/19 21:33 91 18 94 Room Air 05/14/19 20:32 98.8 75 16 102/62 (75) 97 Room Air 05/14/19 15:40 98.7 73 12 101/61 (74) 95 Room Air 05/14/19 13:03 92 18 92 Room Air 21 05/14/19 11:58 99.3 80 18 115/70 (85) 93 Room Air 05/14/19 07:34 Room Air 05/14/19 07:33 100.0 73 14 104/69 (81) 94 05/14/19 05:40 100.1 84 18 111/68 (82) 92 Room Air 05/14/19 00:29 Room Air 05/14/19 00:13 98.1 74 18 107/72 (84) 94 Room Air 05/13/19 21:04 81 18 93 Room Air 21 05/13/19 19:46 99.5 73 17 107/69 (82) 97 Room Air 05/13/19 13:41 99.1 76 17 116/74 (88) 97 Room Air 05/13/19 08:56 68 12 95 Room Air 21 05/13/19 07:59 Room Air 05/13/19 06:48 98.7 84 18 98/59 (72) 95 Room Air 05/13/19 05:42 98.6 70 16 102/62 (75) 96 Room Air 05/13/19 02:30 98.1 73 16 95/56 (69) 91 Room Air 05/13/19 01:13 98.4 80 16 97/56 (70) 91 Room Air 05/13/19 00:20 99.1 87 16 101/64 (76) 94 Nasal Canula 1 05/12/19 23:12 98.7 78 16 114/62 (79) 98 Nasal Canula 1 05/12/19 22:57 98.1 70 18 103/63 (76) 99 Nasal Canula 1 05/12/19 22:18 97.5 81 16 102/59 (73) 98 Nasal Canula 1 05/12/19 21:49 97.5 83 18 96/60 (72) 98 Nasal Canula 1 05/12/19 21:27 Nasal Cannula 2.00 05/12/19 21:17 97.7 73 16 97/57 (70) 97 Nasal Canula 1 05/12/19 20:51 78 18 99 Nasal Cannula 2.00 28 05/12/19 20:47 16 99 05/12/19 20:05 97.5 74 18 102/57 (72) 96 Nasal [place] 1 05/12/19 19:55 97.7 78 16 108/47 (67) 98 Nasal Canula 2 05/12/19 19:45 97.5 65 18 92/51 (65) 100 Room Air 05/12/19 19:35 98.5 66 16 93/59 (70) 98 Non-Rebreather 10 05/12/19 19:35 10 05/12/19 17:27 98.5 70 16 105/67 (80) 100 05/12/19 17:10 98.5 70 16 105/67 (80) 100 05/12/19 16:09 98.5 56 16 86/53 (64) 100 05/12/19 14:52 98.5 59 16 05/12/19 14:37 98.5 58 16 100 05/12/19 14:37 98.5 62 16 100/63 (75) 100 Scheduled Docusate Sodium (Easy-Lax), 200 MG PO BID Ferrous Sulfate (Iron), 325 MG PO BID, (Reported) Pnv With Ca,No.72/Iron/Fa ( Plus Iron Tablet), 1 TAB PO DAILY, (Reported) Sennosides (Senokot), 17.2 MG PO BID Scheduled PRN Hydrocodone Bit/Acetaminophen ([place] 5-325 Tablet), 1 EACH PO Q4HR PRN for PAIN MODERATE Sepsis Reassessment @ [place] Vital Sign - Last 24 Hours 05/12/19 05/12/19 05/12/19 05/12/19 14:37 14:37 14:52 16:09 Temp 98.5 98.5 98.5 98.5 Pulse 62 58 59 56 Resp 16 16 16 16 B/P (MAP) 100/63 (75) 86/53 (64) Pulse Ox 100 100 100 Laboratory Tests Test 05/12/19 15:25 White Blood Count 9.1 10^3/uL Red Blood Count 4.29 10^6/uL Hemoglobin 12.5 g/dL Hematocrit 37.4 % Mean Corpuscular Volume 87.2 fL Mean Corpuscular Hemoglobin 29.1 pg Mean Corpuscular Hemoglobin Concent 33.4 g/dL Red Cell Distribution Width 12.9 % Platelet Count 278 10^3/uL Mean Platelet Volume 10.7 fL Neutrophils (%) (Auto) 87.1 % Lymphocytes (%) (Auto) 9.4 % Monocytes (%) (Auto) 2.9 % Neutrophils # (Auto) 7.9 10^3/uL Lymphocytes # (Auto) 0.86 10^3/uL1 Monocytes # (Auto) 0.3 10^3/uL Absolute Immature Granulocyte (auto 0.02 10^3 u/L Absolute Eosinophils (auto) 0.0 10^3/uL Immature Granulocytes % 0.20 % Eosinophils % 0.2 % Basophils % 0.2 % Basophils # 0.0 10^3/uL Prothrombin Time 11.4 SEC Prothrombin Time INR (Non-Therap) 1.1 Activated Partial Thromboplast Time 23.2 SEC Sodium Level 140 mmol/L Potassium Level 3.9 mmol/L Chloride Level 105.0 mmol/L Carbon Dioxide Level 27.4 mmol/L Anion Gap 11.5 Blood Urea Nitrogen 10 mg/dL Creatinine 0.70 mg/dL Estimated GFR () 118.1 Est GFR (CKD-EPI)(Non-Afr Jordanian) 97.6 BUN/Creatinine Ratio 14.0 Glucose Level 121 mg/dL Calcium Level 8.8 mg/dL Total Bilirubin 0.3 mg/dL Aspartate Amino Transf (AST/SGOT) 31 U/L Alanine Aminotransferase (ALT/SGPT) 67 U/L Alkaline Phosphatase 75 U/L Total Protein 7.7 g/dL Albumin 3.9 g/dL Globulin 3.8 Amylase Level 54 U/L Lipase 174 U/L Serum HCG, Qualitative NEGATIVE Current Medications Medications (Trade) Dose Ordered Sig/Michael PRN Reason Start Time Stop Time Status Last Admin Fentanyl Citrate (Sublimaze) 50 mcg STAT STAT 05/12/19 15:33 05/12/19 15:34 UNV 05/12/19 15:47 Ondansetron HCl (Zofran) 4 mg STAT STAT 05/12/19 15:33 05/12/19 15:34 UNV 05/12/19 15:47 Sodium Chloride 1,000 ml @ 0 mls/hr Q0M STAT 05/12/19 16:30 05/12/19 16:31 UNV 05/12/19 16:32 Referral/Follow-up f/u: Sx 05/23/2019 Prescription/RX: Active Scripts Active Senokot (Sennosides) 8.6 Mg Tablet 17.2 Mg PO BID Easy-Lax (Docusate Sodium) 100 Mg Capsule 200 Mg PO BID [place] 5-325 Tablet (Acetaminophen/Hydrocodone Bitart) 5-325 Ta1 Ea Tablet 1 Each PO Q4HR PRN Reported Iron (Ferrous Sulfate) 325 Mg Capsule.er 325 Mg PO BID Plus Iron Tablet (Pnv With Ca,No.72/Iron/Fa) 1 Each Tablet 1 Tab PO DAILY ALISTAIR AUSTIN DO May 15, 2019 12:32
--- NOTE | 2019-05-15 12:54 | DSH ---
DATE OF DISCHARGE: 05/15/2019 PRINCIPAL DIAGNOSES: The patient is status post, 05/12/2019, with General Surgery: Ventral herniorrhaphy with small bowel resection with primary anastomosis for diagnosis of incarcerated supraumbilical ventral hernia with small bowel involvement. SECONDARY DIAGNOSES: 1. Anemia. 2. Cholelithiasis, asymptomatic. 3. Obesity. 4. Hypokalemia. CONSULTATIONS: Surgery who performed the aforementioned procedure. DISPOSITION: The patient is advised to follow up with Surgery on 05/23/2019. DISCHARGE MEDICATIONS: 1. [place] 5/325 mg 1 tab p.o. q. 4 hours p.r.n. pain. 2. Multivitamin 1 tab p.o. daily. 3. Colace 100 mg 2 tabs p.o. b.i.d. #20, no refills. 4. Senna 8.6 mg 2 tabs p.o. b.i.d. #20, no refills. ALISTAIR AUSTIN DO DR: RODNEY/anat JOB# [id number]
[2019-05-15 14:00] VITALS: BP 103/66
--- NOTE | 2019-05-15 14:00 | NUR ---
DISCHARGE PT DC AT THIS TIME. PT UNDERSTANDS ALL DC INSTRUCTIONS INCLUDING NEW MEDICATIONS, FOLLOW UP WITH DR. VALDES, AND HOME DIET AND ACTIVITY. PT AND SPOUSE UNDERSTANDS ALL DC INSTRUCTIONS. PT LEAVES FLOOR VIA WHEELCHAIR ACCOMPANIED BY SPOUSE TO PRIVATE VEHICLE. NO OTHER QUESTIONS OR CONCERNS NOTED AT THIS TIME.
[2019-05-15] MEDS ORDERED: SENOKOT PO SCH (21:00)
[2019-05-15] MEDS ORDERED: COLACE PO SCH (21:00)
--- NOTE | 2019-05-15 23:20 | PNH ---
DATE: 05/15/2019 TIME: 9:40 a.m. SUBJECTIVE: The patient offers no complaints at this time. Upon further questioning, she indicates that she has 10/10 abdominal pain. Overnight, she denies fevers, chills, nausea, vomiting, cough, wheeze or shortness of breath. She states that she is tolerating p.o. She states postoperatively she has not yet had a bowel movement, but she has had flatus. I have explained to the patient, her current medical condition and plan of care and I have answered all of her questions. OBJECTIVE: GENERAL: The patient is alert. She is in no acute distress. She is neither dyspneic nor tachypneic. HEART: Regular rate and rhythm without murmurs, gallops or rubs. LUNGS: Clear to auscultation bilaterally without wheeze, rhonchi or rales. ABDOMEN: Hypoactive bowel sounds in all 4 quadrants without rebound or guarding. EXTREMITIES: There is minimal supraumbilical tenderness present. The patient has 2/4 plus in all 4 extremities without clubbing, cyanosis or edema. PERTINENT LABORATORY DATA AND VITALS: Vital signs are stable. ASSESSMENT AND PLAN: 1. The patient is status post 05/07/2019 with General Surgery: Ventral herniorrhaphy with small bowel resection with primary anastomosis for diagnosis of incarcerated supraumbilical open ventral hernia with small bowel involvement. Continue cefoxitin unspecified dosage intravenous q. 8 hours plus intravenous lactated Ringer's at 75 mL per hour. We will continue p.r.n. analgesia. 2. Small-bowel obstruction versus ileus. Senna 17.2 mg p.o. b.i.d. plus Colace 200 mg p.o. b.i.d. 3. Anemia. We will monitor hemoglobin levels intermittently. 4. Cholelithiasis, asymptomatic. 5. Obesity. 6. Gastrointestinal prophylaxis, Protonix 40 mg intravenous daily. 7. Colace 200 mg p.o. b.i.d. plus senna 17.2 mg p.o. b.i.d. 8. Hypokalemia, status post treatment. 9. Deep venous thrombosis prophylaxis, Lovenox 40 mg subcutaneously daily. DISPOSITION: The patient will be a candidate for discharge once she is having regular bowel movements as KUB from 05/14/2019 demonstrates ileus versus partial small-bowel obstruction. ALISTAIR AUSTIN DO DR: Venus JOB# [id number]
== END 2019-05-15 14:00 | disposition home or self-care (01) | DRG 331 ==
LOC: ER 14:23 → MS 16:56 → OBSVTOIN 19:36
PROVIDERS: ADMIT Internal Medicine; ATTEND Internal Medicine
PROC: 0D9670Z Drainage of Stomach with Drainage Device, Via Natural or Artificial Opening (ICD-10-PCS; principal; 2019-05-12 17:37)
PROC: 0DB80ZZ Excision of Small Intestine, Open Approach (ICD-10-PCS; 2019-05-13)
PROC: 0WQF0ZZ Repair Abdominal Wall, Open Approach (ICD-10-PCS; 2019-05-13)
DX: K43.6 Other and unspecified ventral hernia with obstruction, without gangrene (principal); D64.9 Anemia, unspecified; E66.9 Obesity, unspecified; E87.6 Hypokalemia; K80.20 Calculus of gallbladder without cholecystitis without obstruction; E86.0 Dehydration; I95.9 Hypotension, unspecified; Z68.36 Body mass index [BMI] 36.0-36.9, adult; Z79.899 Other long term (current) drug therapy
CPT/HCPCS: 36415; 71045; 74019; 74177; 80048; 80053; 82150; 83605; 83690; 83735; 84703; 85014; 85018; 85025; 85610; 85730; 87086; 99285; C9113; G0378; J0330; J1100; J1170; J1650; J1885; J2001; J2250; J2270; J2405; J2710; J2765; J3010; J3475; J3490; J7030; J7050; J7120; Q9963; Q9965; 88302; 88307; C9290; J0694